=== PATIENT | male | born 1950 | race Hispanic/Latino ===

== ENCOUNTER 2018-07-05 11:48 | Outpatient (CLI) | payer OTHER ==
--- NOTE | 2018-07-05 15:52 | RAD ---
LUMBAR SPINE 5 VIEWS: Date: 07/05/18 No acute fracture seen. There is perhaps some slight wedging of T11 and T12, but this does not appear new. The disc spaces are all normal in height. Osteophytes are prominent in the lower lumbar levels anteriorly. 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 The SI joints are symmetrical. The hip joint space s are narrowed, but symmetrical. IMPRESSION: Mild degenerative changes, but no acute findings. POS: HOME
== END 2018-07-05 11:49 | disposition home or self-care (01) ==
LOC: BURRAD 11:48
PROVIDERS: ATTEND Family Medicine
DX: M54.42 Lumbago with sciatica, left side (principal); M47.816 Spondylosis without myelopathy or radiculopathy, lumbar region
CPT/HCPCS: 72110

== ENCOUNTER 2019-06-17 12:48 | Emergency (ER) | payer OTHER, SELFPAY ==
[2019-06-17] MEDS ORDERED: EPINEPHrine 1 MG/10 ML Abboject SYRINGE ONE (14:02)
[2019-06-17] MEDS ORDERED: Calcium Chloride 1 GM/10 ML Abboject SYRINGE ONE (14:02)
[2019-06-17 14:11] LABS: ALT (SGPT) 99 U/L (8-55); AST (SGOT) 70 U/L (5-34); Albumin 3.5 g/dL (3.4-4.8); Alkaline Phosphatase 50 U/L (40-110); Anion Gap 31 mmol/L (10-20); BUN (Urea Nitrogen) 15 mg/dL (8.4-25.7); Bilirubin, Total 0.3 mg/dL (0.2-1.2); Calc. Creatinine Clearance 0 mL/min (70-130); Calcium 9.5 mg/dL (7.8-10.44); Carbon Dioxide 17 mmol/L (23-31); Chloride 107 mmol/L (98-107); Estimated GFR-MDRD 54; Globulin 2.5 g/dL (2.4-3.5); Glucose 289 mg/dL (80-115); Potassium 7.8 mmol/L (3.5-5.1); Sodium 147 mmol/L (136-145)
[2019-06-17 14:12] LABS: #Basophils 0.1 thou/uL (0.0-0.2); #Eosinphils 0.1 thou/uL (0.0-0.7); #Lymphocytes 2.5 thou/uL (1.20-3.40); #Monocytes 0.5 thou/uL (0.11-0.59); #Neutrophils 2.2 thou/uL (1.40-6.50); %Basophils 1.2 % (0.0-1.0); %Eosinophils 1.5 % (0.0-10.0); %Lymphocytes 47.4 % (21.0-51.0); %Monocytes 8.9 % (0.0-10.0); Hemoglobin 12.8 g/dL (14.0-18.0); Mean Corpuscular HGB CONC 32.4 g/dL (32.0-36.0); Mean Corpuscular Hemoglobin 30.5 pg (27.0-31.0); Mean Corpuscular Volume 94.2 fL (78.0-98.0); Mean Platelet Volume 6.1 fL (7.4-10.4); Platelet Count 188 thou/uL (130-400); RBC Distribution Width 11.9 % (11.5-14.5); Red Blood Cell (RBC) Count 4.21 mill/uL (4.70-6.10); White Blood Cell (WBC) Count 5.3 thou/uL (4.8-10.8)
[2019-06-17 14:17] LABS: CKMB 4.9 ng/mL (0-6.6)
[2019-06-17 14:22] LABS: Calcium, Ionized 1.15 mmol/L (1.15-1.33); Hemoglobin POC ABG 11.5 g/dL (12.0-17.0); O2 Saturation (calc) POC ABG 61.1 % (94-98)
[2019-06-17 14:23] LABS: Potassium POC ABG 6.7 mmol/L (3.5-4.5); pH (Arterial) 7.068 (7.35-7.45)
== END 2019-06-17 13:18 | disposition expired ==
LOC: BURERS 12:48
DX: I46.9 Cardiac arrest, cause unspecified (principal)
CPT/HCPCS: 36416; 80053; 82330; 82553; 82803; 84484; 85025; 92950; 96374; 96375; J0171